=== PATIENT | male | born 1940 | race Caucasian/White ===

== ENCOUNTER 2017-12-01 07:00 | Day surgery (SDC) | payer MEDICARE, OTHER ==
[~2017-12-01 07:00] MED LIST: Lactated Ringers 1,000 ML IV SCH; Lidocaine 1%/Sod Bicarbonate in NS 8.4% 1 ML Syringe IDERM PRN; Sodium Chloride 0.9% 10 ML Syringe FLUSH PRN
[2017-12-01] MEDS ORDERED: Scopolamine 1 MG Transdermal Patch TRDERM SCH (07:24)
--- NOTE | 2017-12-01 07:35 | PCM.PREANE ---
Preanesthetic Assessment - Anesthesia/Transfusion/Family Hx Anesthesia History: Prior Anesthesia Reaction (nausea) Family History of Anesthesia Reaction: No Transfusion History: No Prior Transfusion(s) - Review of Systems General: No Symptoms Pulmonary: No Symptoms Cardiovascular: No Symptoms Gastrointestinal: No Symptoms Neurological: No Symptoms Other: Reports: Easy Bruising (BS 168 at 0600), Diabetes - Physical Assessment NPO Status Date: 11/30/17 NPO Status Time: 00:00 Pulse: 63 O2 Sat by Pulse Oximetry: 100 Respiratory Rate: 16 Blood Pressure: 176/81 Temperature: 36.4 C Height: 1.78 m Weight: 91.716 kg ASA Class: 2 Mental Status: Alert & Oriented x3 Airway Class: Mallampati = 2 Dentition: Reports: Implants (front on top) Thyro-Mental Finger Breadths: 3 Mouth Opening Finger Breadths: 2 ROM/Head Extension: Full Lungs: Clear to Auscultation, Normal Respiratory Effort Cardiovascular: Regular Rate, Regular Rhythm, No Murmurs - Allergies Allergies/Adverse Reactions: Allergies Allergy/AdvReac Type Severity Reaction Status Date / Time No Known Allergies Allergy Verified 11/30/17 16:17 - Anesthesia Plan Pre-Op Medication Ordered: Beta Oskar Beta Oskar: Metoprolol Med Last Dose Date: 12/01/17 Med Last Dose Time: 05:00 - Acknowledgements Anesthesia Type Planned: TASIA Pt an Appropriate Candidate for the Planned Anesthesia: Yes Alternatives and Risks of Anesthesia Discussed w Pt/Guardian: Yes Pt/Guardian Understands and Agrees with Anesthesia Plan: Yes PreAnesthesia Questionnaire HEENT History: Reports: Hard of Hearing, Impaired Vision, Other (See Below) Other HEENT History: wears glasses, hearing aids Cardiovascular History: Reports: High Cholesterol, Hypertension Respiratory History: Reports: None Gastrointestinal History: Reports: None Genitourinary History: Reports: None BRAND MGR History: Reports: None Musculoskeletal History: Reports: Arthritis, Gout, Other (See Below) Other Musculoskeletal History: plantar fasciitis, right hand trigger finger, left foot calcaneal spur, right hand pain Neurological History: Reports: None Psychiatric History: Reports: None Endocrine/Metabolic History: Reports: Diabetes, Type II Hematologic History: Reports: None Immunologic History: Reports: None Oncologic (Cancer) History: Reports: None Dermatologic History: Reports: Venous Stasis Dermatitis - Past Surgical History Head Surgeries/Procedures: Reports: None Cardiovascular Surgical History: Reports: None Respiratory Surgical History: Reports: None GI Surgical History: Reports: Cholecystectomy, Hernia, Inguinal Female Surgical History: Reports: None Male Surgical History: Reports: None Endocrine Surgical History: Reports: None Neurological Surgical History: Reports: None Musculoskeletal Surgical History: Reports: None Oncologic Surgical History: Reports: None Dermatological Surgical History: Reports: None - SUBSTANCE USE Smoking Status *Q: Former Smoker Tobacco Use Within Last Twelve Months: No Second Hand Smoke Exposure: No Days Per Week of Alcohol Use: 0 Number of Drinks Per Day: 0 Total Drinks Per Week: 0 Recreational Drug Use History: No - HOME MEDS Home Medications: Home Meds Aspirin [Ecotrin] 81 mg PO DAILY 11/30/17 [History] Folic Acid 0.4 mg PO DAILY 11/30/17 [History] Insulin Detemir [Levemir Flextouch] 28 units SQ BEDTIME 11/30/17 [History] Linagliptin [Tradjenta] 5 mg PO DAILY 11/30/17 [History] Metoprolol Succinate 25 mg PO BID 11/30/17 [History] Rosuvastatin Calcium [Rosuvastatin Calcium] 5 mg PO BEDTIME 11/30/17 [History] Triamcinolone Acetonide [Triamcinolone Acetonide 0.1% Crm] 1 dose TOP BID PRN [History] amLODIPine Besylate/Benazepril [Lotrel 10-40 MG] 1 cap PO DAILY 11/30/17 [ History] metFORMIN HCl [Metformin HCl] 1,000 mg PO BID 11/30/17 [History] - CURRENT (IN HOUSE) MEDS Current Meds: Current Medications Lactated Ringer's (Ringers, Lactated) 1,000 mls @ 125 mls/hr IV ASDIRECTED ESTHER Stop: 12/01/17 23:00 Lidocaine/Sodium Bicarbonate (Buffered Lidocaine 1% In Ns 8.4%) 0.25 ml IDERM ONETIME PRN PRN Reason: Prior to IV Start Stop: 12/01/17 18:00 Scopolamine (Scopolamine) 1 each TRDERM ONETIME ESTHER Sodium Chloride (Saline Flush) 10 ml FLUSH ASDIRECTED PRN PRN Reason: Keep Vein Open Stop: 12/01/17 18:00 Discontinued Medications Bupivacaine HCl (Marcaine 0.25%) Confirm Administered Dose 30 ml .ROUTE .STK- MED ONE Stop: 12/01/17 07:18
[2017-12-01] MEDS ORDERED: Propofol 200 MG/20 ML SDV ONE (07:55)
[2017-12-01] MEDS ORDERED: Ondansetron 4 MG/2 ML SDV ONE ×2 (07:55→09:31)
[2017-12-01] MEDS ORDERED: Lidocaine 1% 4 ML ONE (07:56)
[2017-12-01] MEDS ORDERED: fentaNYL 100 MCG/2 ML SDV ONE ×3 (07:56→10:14)
[2017-12-01] MEDS ORDERED: Sodium Bicarbonate 8.4% 50 MEQ/50 ML SDV ONE (07:58)
[2017-12-01] MEDS ORDERED: Lidocaine 0.5% 50 ML SDV ONE (07:58)
[2017-12-01] MEDS ORDERED: ceFAZolin 1 GM Vial ONE (07:59)
[2017-12-01] MEDS: Bupivacaine 0.25% 30 ML SDV ONE ×2 (08:52→10:08)
[2017-12-01] MEDS ORDERED: HYDROmorphone 1 MG/ML Syringe ONE (09:15)
[2017-12-01] MEDS ORDERED: HYDROmorphone 0.5 MG/0.5 ML Syringe IVPUSH PRN (09:17)
[2017-12-01] MEDS ORDERED: fentaNYL 100 MCG/2 ML SDV IVPUSH PRN (09:17)
[2017-12-01] MEDS ORDERED: Ondansetron 4 MG/2 ML SDV IVPUSH PRN (09:17)
[2017-12-01] MEDS ORDERED: Meperidine PF 50 MG/ML Syringe IVPUSH PRN (09:17)
[2017-12-01] MEDS ORDERED: Lactated Ringers 1,000 ML ONE (09:34)
[2017-12-01] MEDS ORDERED: Ketorolac 30 MG/ML SDV ONE (09:39)
--- NOTE | 2017-12-01 10:28 | PCM.POSTAN ---
POST ANESTHESIA ASSESSMENT - MENTAL STATUS Mental Status: Alert - VITAL SIGNS Pulse Rate: 75 SaO2: 99 Resp Rate: 16 Blood Pressure: 127/96 Temperature: 97.4 C - RESPIRATORY Respiratory Status: Respiratory Rate WNL, Airway Patent, O2 Saturation Stable - CARDIOVASCULAR CV Status: Pulse Rate WNL, Blood Pressure Stable - GASTROINTESTINAL GI Status: No Symptoms - PAIN Pain Score: 0 - POST OP HYDRATION Hydration Status: Adequate & Stable
--- NOTE | 2017-12-01 12:07 | PCM48HPAN ---
Post Anesthesia Note - EVALUATION WITHIN 48HRS OF ANESTHETIC Vital Signs in Normal Range: Yes Patient Participated in Evaluation: Yes Respiratory Function Stable: Yes Airway Patent: Yes Cardiovascular Function Stable: Yes Hydration Status Stable: Yes Pain Control Satisfactory: Yes Nausea and Vomiting Control Satisfactory: Yes Mental Status Recovered: Yes
--- NOTE | 2017-12-02 12:32 | OR ---
DATE OF OPERATION: 12/01/2017 SURGEON: Charles Roger MD PREOPERATIVE DIAGNOSIS: 1. Right small, ring, and long fingers palmar fibromatosis. 2. Right thumb palmar fibromatosis. 3. He also had right long and ring fingers stenosing tenosynovitis. POSTOPERATIVE DIAGNOSIS: 1. Right small, ring, and long fingers palmar fibromatosis. 2. Right thumb palmar fibromatosis. 3. He also had right long and ring finger stenosing tenosynovitis. 4. Right small finger stenosing tenosynovitis. OPERATION PERFORMED: 1. Right long, ring, and small fingers subtotal fasciectomy. 2. Right thumb subtotal fasciectomy. 3. Right small finger A1 dejan. 4. Right ring finger A1 dejan. 5. Right long finger A1 dejan. GARNETT FIXER: Na Liu RN INDICATIONS: Mr. 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 In addition, he had significant disease in his thumb with contracture. In addition, he had a mechanical catching and locking with the long and ring fingers. After discussion of the risks, benefits, and alternatives of both conservative as well as surgical treatments, the patient verbalized understanding and wished to proceed with surgery. DESCRIPTION OF PROCEDURE: The patient was brought to the operating room, and underwent general anesthetic. The right upper extremity was prepped and draped in standard orthopedic fashion. A surgical pause was performed, identifying the appropriate patient and appropriate extremity to be operated upon. Preoperative antibiotics were given. So, we utilized a Y-shaped incision extending along basically the entirety of the distal palmar crease and extending proximally up to [place] cardinal line. We had sharply dissected out the skin and subcutaneous tissue. Hemostasis was obtained. Starting proximally, we identified the pretendinous disease at the level of [place] cardinal line. We mobilized the skin from the cords, from the small and long and ring fingers out to the distal aspect of the MP joints. He had primary pretendinous disease. He also had significant again spiral and natatory cord around the small finger. Once we had the volar surface of the cords identified, we again started proximally and divided between each of the cords. We identified the radial neurovascular bundles to each finger, small through long, and then released the anterior to posterior fibers all the way up to the MP joints. Starting in the long finger, we released this followed by the ring finger. The small finger was a little more involved. Again, he had a natatory cord as well as a spiral cord that extended along the ulnar aspect of the digit. This was also released again, protecting neurovascular structures. Once this was released, again the fingers were with improved posture. He also had bit of a contracture of the thumb as well with a pretendinous cord in this region. We made a longitudinal incision at the level of the MP flexion crease extending distally and proximally, sharply dissecting down through the skin and subcutaneous tissue and obtained hemostasis. We then circumferentially dissected around the cord. This was released. We then evaluated the flexor tendon sheath for mechanical symptoms of the long, ring, and small fingers. We released the A1 dejan to long and ring finger, then evaluated the small. He also had significant tendonitis present. With flexion and extension, the tendon did slightly click with passive motion. We elected to release this as well. We irrigated the wounds thoroughly. We closed the skin with 5-0 nylon. I infiltrated the skin and subcutaneous tissue with 0.25% bupivacaine without epinephrine. He was placed in a soft dressing and brought to Recovery in satisfactory condition. ANESTHESIA: ESTIMATED BLOOD LOSS: CATHIE /[id number]
== END 2017-12-01 12:42 | disposition home or self-care (01) ==
LOC: JD.SDS 07:00
PROVIDERS: ATTEND Orthopaedic Surgery
DX: M72.0 Palmar fascial fibromatosis [Dupuytren] (principal); M65.841 Other synovitis and tenosynovitis, right hand; E78.2 Mixed hyperlipidemia; I10 Essential (primary) hypertension; E11.9 Type 2 diabetes mellitus without complications; M19.90 Unspecified osteoarthritis, unspecified site; M10.9 Gout, unspecified; Z90.49 Acquired absence of other specified parts of digestive tract; Z79.899 Other long term (current) drug therapy; Z79.82 Long term (current) use of aspirin; Z87.891 Personal history of nicotine dependence; Z79.4 Long term (current) use of insulin
CPT/HCPCS: A9270-GY; J0690; J1170; J1885; J2405; J2704; J3010; J3490; J7120

== ENCOUNTER → 2021-07-23 | Day surgery (SDC) | payer MEDICARE, OTHER ==
[2021-07-23] MEDS: Polymyxin B/Trimethoprim 10 ML Bottle EYELF SCH ×4 (07:33→08:59)
[2021-07-23] MEDS: Brimonidine 0.2% Ophth Soln 5 ML Bottle EYELF SCH ×4 (07:39→08:59)
[2021-07-23] MEDS: Phenylephrine 2.5% Ophth Soln 2 ML Bot EYELF SCH ×6 (07:43→08:48)
--- NOTE | 2021-07-23 07:45 | PCM.PREANE ---
Preanesthetic Assessment - Anesthesia/Transfusion/Family Hx Anesthesia History: Prior Anesthesia Reaction (nausea) Transfusion History: No Prior Transfusion(s) Intubation History: Unknown - Review of Systems General: No Symptoms Pulmonary: No Symptoms Cardiovascular: No Symptoms Gastrointestinal: No Symptoms Neurological: No Symptoms Other: Reports: Diabetes (BS 157 @ 0530) - Physical Assessment NPO Status Date: 07/22/21 NPO Status Time: 16:30 Mental Status: Alert & Oriented x3 Airway Class: Mallampati = 3 Dentition: Reports: Normal Dentition Thyro-Mental Finger Breadths: 3 Mouth Opening Finger Breadths: 3 ROM/Head Extension: Full Lungs: Clear to Auscultation, Normal Respiratory Effort Cardiovascular: Regular Rate, Regular Rhythm - Allergies Allergies/Adverse Reactions: Allergies Allergy/AdvReac Type Severity Reaction Status Date / Time No Known Allergies Allergy Verified 07/22/21 16:31 - Anesthesia Plan Beta Oskar: Metoprolol Med Last Dose Date: 07/23/21 Med Last Dose Time: 03:30 - Acknowledgements Anesthesia Type Planned: MAC Pt an Appropriate Candidate for the Planned Anesthesia: Yes Alternatives and Risks of Anesthesia Discussed w Pt/Guardian: Yes Pt/Guardian Understands and Agrees with Anesthesia Plan: Yes PreAnesthesia Questionnaire HEENT History: Reports: Hard of Hearing, Impaired Vision, Other (See Below) Other HEENT History: wears glasses, hearing aids Cardiovascular History: Reports: High Cholesterol, Hypertension Respiratory History: Reports: None Gastrointestinal History: Reports: GERD Genitourinary History: Reports: None DEAF AND HARD OF HEARING TEACHER History: Reports: None Musculoskeletal History: Reports: Arthritis, Gout, Other (See Below) Other Musculoskeletal History: plantar fasciitis, right hand trigger finger, left foot calcaneal spur, right hand pain Neurological History: Reports: None Psychiatric History: Reports: None Endocrine/Metabolic History: Reports: Diabetes, Type I Hematologic History: Reports: None Immunologic History: Reports: None Oncologic (Cancer) History: Reports: None Dermatologic History: Reports: Venous Stasis Dermatitis - Past Surgical History Head Surgeries/Procedures: Reports: None Cardiovascular Surgical History: Reports: None Respiratory Surgical History: Reports: None GI Surgical History: Reports: Cholecystectomy, Hernia, Inguinal Female Surgical History: Reports: None Male Surgical History: Reports: None Endocrine Surgical History: Reports: None Neurological Surgical History: Reports: None Musculoskeletal Surgical History: Reports: None Oncologic Surgical History: Reports: None Dermatological Surgical History: Reports: None - SUBSTANCE USE Tobacco Use Status *Q: Former Tobacco User - HOME MEDS Home Medications: Home Meds Metoprolol Succinate 25 mg PO BID 11/30/17 [History] Rosuvastatin Calcium 5 mg PO BEDTIME 11/30/17 [History] amLODIPine Besylate/Benazepril [Lotrel 10-40 MG] 1 cap PO DAILY 11/30/17 [History] metFORMIN HCl [Metformin HCl] 1,000 mg PO BID 11/30/17 [History] Aspirin 81 mg PO DAILY 07/22/21 [History] Chlorthalidone 25 mg PO DAILY 07/22/21 [History] Folic Acid 1 mg PO DAILY 07/22/21 [History] Insulin Glargine,Hum.Rec.Anlog [Basaglar Kwikpen U-100] 62 units SQ ASDIRECTED 07/22/21 [History] Pioglitazone [Actos] 30 mg PO DAILY 07/22/21 [History] - CURRENT (IN HOUSE) MEDS Current Meds: Current Medications Brimonidine Tartrate (Brimonidine 0.2% Ophth Soln 5 Ml Bottle) 0 ml EYELF ASDIRECTED ESTHER Stop: 07/23/21 18:00 Last Admin: 07/23/21 07:39 Dose: 1 drop Documented by: Cefuroxime Sodium (Cefuroxime 10 Mg/Ml Syringe) 0 mg EYELF ASDIRECTED ESTHER Stop: 07/23/21 18:00 Lidocaine HCl (Lidocaine 1% Pf 2 Ml Sdv) 0 ml INJECT ASDIRECTED ESTHER Stop: 07/23/21 18:00 Phenylephrine HCl (Phenylephrine 2.5% Ophth Soln 2 Ml Bot) 0 ml EYELF ASDIRECTED ESTHER Stop: 07/23/21 18:00 Pilocarpine HCl (Pilocarpine 4% Ophth Soln 15 Ml Bot) 0 ml EYELF ASDIRECTED ESTHER Stop: 07/23/21 18:00 Polymyxin/Trimethoprim Sulfate (Polymyxin B/Trimethoprim 10 Ml Bottle) 0 ml EYELF ASDIRECTED ESTHER Stop: 07/23/21 18:00 Last Admin: 07/23/21 07:33 Dose: 1 drop Documented by: Tetracaine HCl (Tetracaine Hcl/Pf 0.5% 4 Ml Bottle) 0 ml EYEBOTH ASDIRECTED ESTHER Stop: 07/23/21 18:00 Tropicamide (Tropicamide 1% Ophth Soln 15 Ml Bottle) 0 ml EYELF ASDIRECTED ESTHER Stop: 07/23/21 18:00
[2021-07-23] MEDS: Tropicamide 1% Ophth Soln 15 ML Bottle EYELF SCH ×4 (07:48→08:25)
[2021-07-23] MEDS: Tetracaine HCl/PF 0.5% 4 ML Bottle EYEBOTH SCH ×3 (08:37→08:48)
[2021-07-23] MEDS: Lidocaine 1% PF 2 ML SDV INJECT SCH ×2 (08:47→08:48)
[2021-07-23] MEDS: Cefuroxime 10 MG/ML SYRINGE EYELF SCH ×2 (08:49→08:58)
[2021-07-23] MEDS: Pilocarpine 4% Ophth Soln 15 ML Bot EYELF SCH ×2 (08:49→08:59)
== END ==
LOC: JD.SDS 07:18
PROVIDERS: ATTEND Ophthalmology
DX: E10.36 Type 1 diabetes mellitus with diabetic cataract (principal); H25.813 Combined forms of age-related cataract, bilateral; H16.103 Unspecified superficial keratitis, bilateral; H16.223 Keratoconjunctivitis sicca, not specified as Sjogren's, bilateral; H02.831 Dermatochalasis of right upper eyelid; H02.834 Dermatochalasis of left upper eyelid; H21.81 Floppy iris syndrome; H21.42 Pupillary membranes, left eye; E78.00 Pure hypercholesterolemia, unspecified; I10 Essential (primary) hypertension; Z79.899 Other long term (current) drug therapy; Z90.49 Acquired absence of other specified parts of digestive tract; Z87.891 Personal history of nicotine dependence
CPT/HCPCS: 66982; J0697; C1780

== ENCOUNTER 2021-08-20 09:37 | Day surgery (SDC) | payer MEDICARE, OTHER ==
[~2021-08-20 09:37] MED LIST changes: +Cefuroxime 10 MG/ML SYRINGE EYERT SCH; -Lactated Ringers 1,000 ML IV SCH; -Lidocaine 1%/Sod Bicarbonate in NS 8.4% 1 ML Syringe IDERM PRN; +Pilocarpine 4% Ophth Soln 15 ML Bot EYERT SCH; -Sodium Chloride 0.9% 10 ML Syringe FLUSH PRN
[2021-08-20] MEDS: Polymyxin B/Trimethoprim 10 ML Bottle EYERT SCH ×3 (10:11→12:11)
[2021-08-20] MEDS: Brimonidine 0.2% Ophth Soln 5 ML Bottle EYERT SCH ×3 (10:16→12:11)
[2021-08-20] MEDS: Phenylephrine 2.5% Ophth Soln 2 ML Bot EYERT SCH ×6 (10:22→12:10)
[2021-08-20] MEDS: Tropicamide 1% Ophth Soln 15 ML Bottle EYERT SCH ×4 (10:26→11:21)
--- NOTE | 2021-08-20 10:31 | PCM.PREANE ---
Preanesthetic Assessment - Anesthesia/Transfusion/Family Hx Anesthesia History: Prior Anesthesia Without Reaction (nausea) Family History of Anesthesia Reaction: No Transfusion History: No Prior Transfusion(s) Intubation History: Unknown - Review of Systems General: No Symptoms Pulmonary: No Symptoms Cardiovascular: Other (HTN) Gastrointestinal: No Symptoms Other: Reports: Diabetes (IDDM am glucose 125) - Physical Assessment NPO Status Date: 08/19/21 NPO Status Time: 17:00 ASA Class: 2 Mental Status: Alert & Oriented x3 Airway Class: Mallampati = 2 Dentition: Reports: Normal Dentition Thyro-Mental Finger Breadths: 3 Mouth Opening Finger Breadths: 3 ROM/Head Extension: Full Lungs: Clear to Auscultation, Normal Respiratory Effort Cardiovascular: Regular Rate, Regular Rhythm - Lab Values: Laboratory Last Values POC Glucose 125 mg/dL (70-99) H 08/20/21 10:12 - Allergies Allergies/Adverse Reactions: Allergies Allergy/AdvReac Type Severity Reaction Status Date / Time No Known Allergies Allergy Verified 08/19/21 11:33 - Blood Blood Available: No Product(s) Available: None - Anesthesia Plan Beta Oskar: Metoprolol Med Last Dose Date: 08/19/21 Med Last Dose Time: 16:00 - Acknowledgements Anesthesia Type Planned: MAC Pt an Appropriate Candidate for the Planned Anesthesia: Yes Alternatives and Risks of Anesthesia Discussed w Pt/Guardian: Yes Pt/Guardian Understands and Agrees with Anesthesia Plan: Yes PreAnesthesia Questionnaire HEENT History: Reports: Hard of Hearing, Impaired Vision, Other (See Below) Other HEENT History: wears glasses, hearing aids Cardiovascular History: Reports: High Cholesterol, Hypertension Respiratory History: Reports: None Gastrointestinal History: Reports: GERD Genitourinary History: Reports: None NET DEVELOPMENT MANAGER History: Reports: None Musculoskeletal History: Reports: Arthritis, Gout, Other (See Below) Other Musculoskeletal History: plantar fasciitis, right hand trigger finger, left foot calcaneal spur, right hand pain Neurological History: Reports: None Psychiatric History: Reports: None Endocrine/Metabolic History: Reports: Diabetes, Type I Hematologic History: Reports: None Immunologic History: Reports: None Oncologic (Cancer) History: Reports: None Dermatologic History: Reports: Venous Stasis Dermatitis - Past Surgical History Head Surgeries/Procedures: Reports: None Cardiovascular Surgical History: Reports: None Respiratory Surgical History: Reports: None GI Surgical History: Reports: Cholecystectomy, Hernia, Inguinal Female Surgical History: Reports: None Male Surgical History: Reports: None Endocrine Surgical History: Reports: None Neurological Surgical History: Reports: None Musculoskeletal Surgical History: Reports: None Oncologic Surgical History: Reports: None Dermatological Surgical History: Reports: None - HOME MEDS Home Medications: Home Meds Metoprolol Succinate 25 mg PO BID 11/30/17 [History] Rosuvastatin Calcium 5 mg PO BEDTIME 11/30/17 [History] amLODIPine Besylate/Benazepril [Lotrel 10-40 MG] 1 cap PO DAILY 11/30/17 [History] metFORMIN HCl [Metformin HCl] 1,000 mg PO BID 11/30/17 [History] Aspirin 81 mg PO DAILY 07/22/21 [History] Chlorthalidone 25 mg PO DAILY 07/22/21 [History] Folic Acid 1 mg PO DAILY 07/22/21 [History] Insulin Glargine,Hum.Rec.Anlog [Basaglar Kwikpen U-100] 62 units SQ ASDIRECTED 07/22/21 [History] Pioglitazone [Actos] 30 mg PO DAILY 07/22/21 [History] - CURRENT (IN HOUSE) MEDS Current Meds: Current Medications Brimonidine Tartrate (Brimonidine 0.2% Ophth Soln 5 Ml Bottle) 0 ml EYERT ASDIRECTED ESTHER Stop: 08/20/21 18:00 Last Admin: 08/20/21 10:16 Dose: 1 drop Documented by: Cefuroxime Sodium (Cefuroxime 10 Mg/Ml Syringe) 0 mg EYERT ASDIRECTED ESTHER Stop: 08/20/21 18:00 Lidocaine HCl (Lidocaine 1% Pf 2 Ml Sdv) 0 ml INJECT ASDIRECTED ESTHER Stop: 08/20/21 18:00 Phenylephrine HCl (Phenylephrine 2.5% Ophth Soln 2 Ml Bot) 0 ml EYERT ASDIRECTED ESTHER Stop: 08/20/21 18:00 Last Admin: 08/20/21 10:22 Dose: 1 drop Documented by: Pilocarpine HCl (Pilocarpine 4% Ophth Soln 15 Ml Bot) 0 ml EYERT ASDIRECTED ESTHER Stop: 08/20/21 18:00 Polymyxin/Trimethoprim Sulfate (Polymyxin B/Trimethoprim 10 Ml Bottle) 0 ml EYERT ASDIRECTED ESTHER Stop: 08/20/21 18:00 Last Admin: 08/20/21 10:11 Dose: 1 drop Documented by: Tetracaine HCl (Tetracaine Hcl/Pf 0.5% 4 Ml Bottle) 0 ml EYEBOTH ASDIRECTED ESTHER Stop: 08/20/21 18:00 Tropicamide (Tropicamide 1% Ophth Soln 15 Ml Bottle) 0 ml EYERT ASDIRECTED ESTHER Stop: 08/20/21 18:00
--- NOTE | 2021-08-20 10:45 | PCM.PREANE ---
Preanesthetic Assessment - Anesthesia/Transfusion/Family Hx Anesthesia History: Prior Anesthesia Without Reaction (nausea) Family History of Anesthesia Reaction: No Transfusion History: No Prior Transfusion(s) Intubation History: Unknown - Review of Systems Other: Reports: Diabetes (IDDM am glucose 125) - Physical Assessment NPO Status Date: 08/19/21 NPO Status Time: 17:00 - Lab Values: Laboratory Last Values POC Glucose 125 mg/dL (70-99) H 08/20/21 10:12 - Allergies Allergies/Adverse Reactions: Allergies Allergy/AdvReac Type Severity Reaction Status Date / Time No Known Allergies Allergy Verified 08/19/21 11:33 - Blood Blood Available: No Product(s) Available: None PreAnesthesia Questionnaire HEENT History: Reports: Hard of Hearing, Impaired Vision, Other (See Below) Other HEENT History: wears glasses, hearing aids Cardiovascular History: Reports: High Cholesterol, Hypertension Respiratory History: Reports: None Gastrointestinal History: Reports: GERD Genitourinary History: Reports: None CLOTH DRIER History: Reports: None Musculoskeletal History: Reports: Arthritis, Gout, Other (See Below) Other Musculoskeletal History: plantar fasciitis, right hand trigger finger, left foot calcaneal spur, right hand pain Neurological History: Reports: None Psychiatric History: Reports: None Endocrine/Metabolic History: Reports: Diabetes, Type I Hematologic History: Reports: None Immunologic History: Reports: None Oncologic (Cancer) History: Reports: None Dermatologic History: Reports: Venous Stasis Dermatitis - Past Surgical History Head Surgeries/Procedures: Reports: None Cardiovascular Surgical History: Reports: None Respiratory Surgical History: Reports: None GI Surgical History: Reports: Cholecystectomy, Hernia, Inguinal Female Surgical History: Reports: None Male Surgical History: Reports: None Endocrine Surgical History: Reports: None Neurological Surgical History: Reports: None Musculoskeletal Surgical History: Reports: None Oncologic Surgical History: Reports: None Dermatological Surgical History: Reports: None - HOME MEDS Home Medications: Home Meds Metoprolol Succinate 25 mg PO BID 11/30/17 [History] Rosuvastatin Calcium 5 mg PO BEDTIME 11/30/17 [History] amLODIPine Besylate/Benazepril [Lotrel 10-40 MG] 1 cap PO DAILY 11/30/17 [History] metFORMIN HCl [Metformin HCl] 1,000 mg PO BID 11/30/17 [History] Aspirin 81 mg PO DAILY 07/22/21 [History] Chlorthalidone 25 mg PO DAILY 07/22/21 [History] Folic Acid 1 mg PO DAILY 07/22/21 [History] Insulin Glargine,Hum.Rec.Anlog [Basaglar Audraikpen U-100] 62 units SQ ASDIRECTED 07/22/21 [History] Pioglitazone [Actos] 30 mg PO DAILY 07/22/21 [History] - CURRENT (IN HOUSE) MEDS Current Meds: Current Medications Brimonidine Tartrate (Brimonidine 0.2% Ophth Soln 5 Ml Bottle) 0 ml EYERT ASDIRECTED ESTHER Stop: 08/20/21 18:00 Last Admin: 08/20/21 10:16 Dose: 1 drop Documented by: Cefuroxime Sodium (Cefuroxime 10 Mg/Ml Syringe) 0 mg EYERT ASDIRECTED ESTHER Stop: 08/20/21 18:00 Lidocaine HCl (Lidocaine 1% Pf 2 Ml Sdv) 0 ml INJECT ASDIRECTED ESTHER Stop: 08/20/21 18:00 Phenylephrine HCl (Phenylephrine 2.5% Ophth Soln 2 Ml Bot) 0 ml EYERT ASDIRECTED ESTHER Stop: 08/20/21 18:00 Last Admin: 08/20/21 10:31 Dose: 1 drop Documented by: Pilocarpine HCl (Pilocarpine 4% Ophth Soln 15 Ml Bot) 0 ml EYERT ASDIRECTED ESTHER Stop: 08/20/21 18:00 Polymyxin/Trimethoprim Sulfate (Polymyxin B/Trimethoprim 10 Ml Bottle) 0 ml EYERT ASDIRECTED ESTHER Stop: 08/20/21 18:00 Last Admin: 08/20/21 10:11 Dose: 1 drop Documented by: Tetracaine HCl (Tetracaine Hcl/Pf 0.5% 4 Ml Bottle) 0 ml EYEBOTH ASDIRECTED ESTHER Stop: 08/20/21 18:00 Tropicamide (Tropicamide 1% Ophth Soln 15 Ml Bottle) 0 ml EYERT ASDIRECTED ESTHER Stop: 08/20/21 18:00 Last Admin: 08/20/21 10:26 Dose: 1 drop Documented by:
[2021-08-20] MEDS: Tetracaine HCl/PF 0.5% 4 ML Bottle EYEBOTH SCH ×3 (11:34→12:10)
[2021-08-20] MEDS: Lidocaine 1% PF 2 ML SDV INJECT SCH ×2 (11:53→12:10)
== END 2021-08-20 12:21 | disposition home or self-care (01) ==
LOC: JD.SDS 09:37
PROVIDERS: ATTEND Ophthalmology
DX: E10.36 Type 1 diabetes mellitus with diabetic cataract (principal); H25.811 Combined forms of age-related cataract, right eye; H16.103 Unspecified superficial keratitis, bilateral; H16.223 Keratoconjunctivitis sicca, not specified as Sjogren's, bilateral; H21.81 Floppy iris syndrome; H21.41 Pupillary membranes, right eye; I10 Essential (primary) hypertension; Z98.890 Other specified postprocedural states; Z87.891 Personal history of nicotine dependence; Z79.899 Other long term (current) drug therapy; Z79.84 Long term (current) use of oral hypoglycemic drugs
CPT/HCPCS: 66982; 82947; C1780; J0697